=== PATIENT | male | born 1950 | race Caucasian/White ===

== ENCOUNTER → 2016-12-27 | Outpatient (CLI) | payer OTHER, MEDICARE | LOC: LAB 10:52 | DX: R31.9 Hematuria, unspecified (principal) ==

== ENCOUNTER → 2017-06-28 | Outpatient (CLI) | payer OTHER, MEDICARE | LOC: LAB 20:13 | DX: M25.552 Pain in left hip (principal) ==

== ENCOUNTER → 2018-03-23 | Outpatient (CLI) | payer OTHER, MEDICARE ==
[2018-03-23 16:55] LABS: HEMATOCRIT 35.8 % (42.0-52.0); HEMOGLOBIN 11.4 g/dL (13.5-18.0); MEAN CELL VOLUME 89 fl (78-100); MEAN CORPUSCULAR HEMOGLOBIN 28 pg (27-31); MEAN CORPUSCULAR HGB CONC 32 g/dL (33-37); MEAN PLATELET VOLUME 9.1 fl (7.4-10.4); PLATELET COUNT 261 K/mm3 (130-400); RED BLOOD COUNT 4.03 M/mm3 (4.20-5.60); RED CELL DISTRIBUTION WIDTH 14.1 % (11.5-14.5); WHITE BLOOD COUNT 4.6 K/mm3 (4.8-10.8)
[2018-03-23 17:08] LABS: ALBUMIN 3.9 g/dL (3.5-5.0); BUN/CREATININE RATIO 46.4 (6.0-26.0); CALCIUM 9.2 mg/dL (8.4-10.2); POTASSIUM 4.2 mmol/L (3.6-5.0); TOTAL BILIRUBIN 0.2 mg/dL (0.2-1.3); TOTAL PROTEIN 7.3 g/dL (6.3-8.2)
[2018-03-23 17:14] LABS: LYMPHOCYTE 29 % (20-51); MONOCYTE 11 % (3-10); NEUTROPHILS 49 % (42-75)
[2018-03-23 18:10] LABS: ERYTHROCYTE SEDIMENTATION RATE 20 mm/hr (0-20)
== END ==
LOC: LAB 16:32
PROVIDERS: Nurse Practitioner Family
DX: R21 Rash and other nonspecific skin eruption (principal); Z88.8 Allergy status to other drugs, medicaments and biological substances

== ENCOUNTER → 2018-11-10 | Outpatient (CLI) | payer OTHER, MEDICARE ==
[2018-11-10 08:50] LABS: URINE APPEARANCE HAZY; URINE BILIRUBIN NEGATIVE (NEGATIVE); URINE BLOOD TRACE (NEGATIVE); URINE COLOR YELLOW; URINE GLUCOSE NEGATIVE (NEGATIVE); URINE KETONE NEGATIVE (NEGATIVE); URINE LEUKOCYTE ESTERASE NEGATIVE (NEGATIVE); URINE NITRATE NEGATIVE (NEGATIVE); URINE PROTEIN(semi-quant) TRACE mg/dL (NEGATIVE); URINE UROBILINOGEN NORMAL (NORMAL); URINE WBC 0-1 /hpf (0-3)
[2018-11-10 08:51] LABS: URINE MUCUS PRESENT (NOT PRESENT)
== END ==
LOC: LAB 06:48
PROVIDERS: Psychiatry & Neurology Neurology
DX: G31.83 Neurocognitive disorder with Lewy bodies (principal); F02.81 Dementia in other diseases classified elsewhere, unspecified severity, with behavioral disturbance; R31.9 Hematuria, unspecified

== ENCOUNTER → 2019-04-06 | Outpatient (CLI) | payer OTHER, MEDICARE | LOC: RAD 11:18 | DX: T84.84XA Pain due to internal orthopedic prosthetic devices, implants and grafts, initial encounter (principal); M16.11 Unilateral primary osteoarthritis, right hip ==

== ENCOUNTER 2021-12-21 16:44 | Observation (INO) | payer OTHER, MEDICARE ==
[~2021-12-21] VITALS: Ht 175.3 cm; Wt 59.4 kg
[2021-12-21 17:39] LABS: BASO # 0.03 K/mm3 (0.02-0.10); EOS # 0.43 K/mm3 (0.04-0.40); EOS % 7.5 % (0.0-4.0); HEMATOCRIT 34.8 % (42.0-52.0); HEMOGLOBIN 11.1 g/dL (13.5-18.0); LYMPH# 1.34 K/mm3 (1.50-4.00); MEAN CELL VOLUME 91 fl (78-100); MEAN CORPUSCULAR HEMOGLOBIN 29 pg (27-31); MEAN CORPUSCULAR HGB CONC 32 g/dL (33-37); MEAN PLATELET VOLUME 8.8 fl (7.4-10.4); MONO # 0.42 K/mm3 (0.20-0.80); NEU # 3.47 K/mm3 (1.40-6.50); PLATELET COUNT 186 K/mm3 (130-400); RED BLOOD COUNT 3.83 M/mm3 (4.20-5.60); RED CELL DISTRIBUTION WIDTH 13.1 % (11.5-14.5); WHITE BLOOD COUNT 5.7 K/mm3 (4.8-10.8)
[2021-12-21 17:52] LABS: ALBUMIN 3.8 g/dL (3.4-4.8); POTASSIUM 4.3 mmol/L (3.5-5.1)
[2021-12-21 17:53] LABS: CALCIUM 9.2 mg/dL (8.3-10.5)
[2021-12-21 17:54] LABS: TOTAL PROTEIN 6.4 g/dL (6.2-8.1)
[2021-12-21 17:56] LABS: TOTAL BILIRUBIN 0.6 mg/dL (0.2-1.2)
[2021-12-21 18:01] LABS: MAGNESIUM 2.08 mg/dL (1.60-2.60)
[2021-12-21 18:38] LABS: URINE APPEARANCE CLEAR; URINE BILIRUBIN NEGATIVE (NEGATIVE); URINE BLOOD NEGATIVE (NEGATIVE); URINE COLOR YELLOW; URINE GLUCOSE NEGATIVE (NEGATIVE); URINE KETONE NEGATIVE (NEGATIVE); URINE LEUKOCYTE ESTERASE NEGATIVE (NEGATIVE); URINE MUCUS PRESENT (NOT PRESENT); URINE NITRATE NEGATIVE (NEGATIVE); URINE PROTEIN(semi-quant) 1+ (NEGATIVE); URINE UROBILINOGEN NORMAL (NORMAL); URINE WBC 0-1 /hpf (0-3)
--- NOTE | 2021-12-21 18:53 | NUR ---
Patient admitted observation from the ER via wheelchair with DX of parkinsons disease, visual hallucinations, lewy body disease, chronic pain, weakness, fall, and anxiety. Denies pain at this time. Transferred 2 assist to the bed and to rest back in bed. Heels floated. Alert to self, , , and year but not place, situation, or month. Speech clear at this time and answers appropriate. Phyllis in and assists patient to eat hamburger and ice cream shake. HOB elevated. Pills given whole 1 at a time with sips of water. Tramadol given for pain prevention per patient request. 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
[2021-12-21] MEDS ORDERED: QUETIAPINE FUMA25 M3 PO (18:57)
[2021-12-21] MEDS ORDERED: LORAZEPAM1 M1 PO (18:57)
[2021-12-21] MEDS ORDERED: TRAMADOL 50 MG TAB PO (18:57)
[2021-12-21 22:14] VITALS: BP 116/86
[2021-12-21] MEDS ORDERED: SENNA8.6 M1 PO (22:46)
[2021-12-21] MEDS ORDERED: SEROQUEL 2525 MG/TAB PO (22:46)
[2021-12-21] MEDS ORDERED: ATIVAN1 M1 PO (22:48)
[2021-12-21] MEDS ORDERED: GOOD NEIGHBOR100 M2 PO (22:50)
--- NOTE | 2021-12-21 23:00 | NUR ---
Patient rests with eyes closed. Respirations with ease.
[2021-12-22 08:10] VITALS: BP 98/60
[2021-12-22 11:30] VITALS: BP 97/62
--- NOTE | 2021-12-22 16:39 | NUR ---
Sent referral to [facility]. They do have beds available. Faxed clinicals to Maty (Intake) at [phone] phone: [phone]
--- NOTE | 2021-12-22 17:03 | NUR ---
confirmed fax received. Awaiting reviewer's response
--- NOTE | 2021-12-22 17:04 | NUR ---
Referral sent To [facility] in [place]. When called they did not have any beds. I advised them that this was an employee of our system and that we were wanting something in our network. Faxed referral to [phone]
[2021-12-22 17:34] VITALS: BP 113/66
--- NOTE | 2021-12-22 19:16 | NUR ---
Report received from Kalani HAYES. Patient sitting up in recliner. A/O x4. Soft spoken. Denies pain. States he is "always" SOB when asked. Respirations are even and non-labored. No signs of distress. Assessment completed. Alarms and call light in place.
--- NOTE | 2021-12-22 20:22 | NUR ---
Resting in bed. Awaken for scheduled HS medications. Pills taken whole without difficulty, Denies wants or needs.
[2021-12-22 21:50] VITALS: BP 102/64
--- NOTE | 2021-12-22 23:16 | NUR ---
Resting quietly with eyes closed. No signs of pain or distress. Bed alarm on. Call light in reach.
--- NOTE | 2021-12-22 23:50 | NUR ---
Sleeping well. Repositioned in bed by staff. Used urinal and voids 150 ML of clear yellow urine. Denies pain or needs. Bed alarm on. Call light in reach. in house and updated on status.
--- NOTE | 2021-12-23 02:43 | NUR ---
Rings call light to use urinal. Voids 400 ML clear yellow urine. Denies pain or needs.
[2021-12-23 05:20] VITALS: BP 111/71
--- NOTE | 2021-12-23 05:37 | NUR ---
AM medication taken. states patient wanting a pain pill now. Tramadol taken with scheduled Protonix. Requests HOB elevated and done. Denies further wants or needs at this time.
--- NOTE | 2021-12-23 07:14 | NUR ---
Report to Kalani HAYES.
--- NOTE | 2021-12-23 09:14 | NUR ---
Patient up to chair, 2 assist with gait belt and walker. A&Ox4, RA, no c/o pain or discomfort. Independent with breakfast. Reports he slept well last night. Eager to discharge to new facility today. Chair in locked position. Call light within reach.
[2021-12-23 09:45] VITALS: BP 94/59
--- NOTE | 2021-12-23 11:13 | NUR ---
Left a voice message with Maty at [facility]. Awaiting her reply
[2021-12-23 14:15] VITALS: BP 101/66
--- NOTE | 2021-12-23 16:20 | NUR ---
Spoke with Maty Pretty from [facility]. [phone] She is needing a DPOA paperwork, and PCR test for COVID-19. Accepting Physician is Darshan Wasserman. Betsey they will accept Monday. Possibly Monday but highly unlikely for monday. Maty asked for a copy of his insurance card.
[2021-12-23 18:00] VITALS: BP 101/65
--- NOTE | 2021-12-23 19:30 | NUR ---
Report received from Kalani HAYES. Patient up in recliner. A/O x4. No hallucinations noted. Denies pain but would like analgesic with bedtime medications. Assessment completed. Denies wants or needs at this time.
--- NOTE | 2021-12-23 20:40 | NUR ---
HS medications taken whole. Assisted to bed with 2:1 pivot transfer. Voids 50 ML of clear yellow urine in urinal. at bedside.
[2021-12-23 22:21] VITALS: BP 101/63
--- NOTE | 2021-12-23 23:54 | NUR ---
Resting well with no signs of pain or distress. Bed alarm on. Call light in reach.
--- NOTE | 2021-12-24 03:56 | NUR ---
Sleeping well per 's report. No signs of pain or distress. Bed alarm on. Call light in reach.
--- NOTE | 2021-12-24 05:25 | NUR ---
Rested well. Repositioned, brief changed and pericare provided. Brief damp. AM Protonix taken whole. Denies pain, "just tired". Would like stronger laxative today. says it has been 5 days since BM and that patient usually only goes twice a week "if we are enrike". States usually has to take Senokot or equvilent or he doesn't go.
[2021-12-24 05:29] VITALS: BP 103/64
--- NOTE | 2021-12-24 07:00 | NUR ---
REPORT RECEIVED FROM TANYA. AYALA. PATIENT CURRENTLY RESTING IN BED WITH EYES CLOSED. BED IN LOWEST LOCKED POSTION. CALL LIGHT WITHIN REACH.
--- NOTE | 2021-12-24 07:02 | NUR ---
[facility]
--- NOTE | 2021-12-24 09:03 | NUR ---
Faxed insurance dpoa and pcr covid test to [facility] in [place]. Likely [facility] will be accepted on Monday. Potentially today. But more likely on Monday. Phyllis apodaca and she is willing to drive him if we can help get him in the car and they can help get him out of the car. Contact at [facility] is Maty phone [phone] and fax is [phone].
[2021-12-24 10:08] VITALS: BP 88/63
--- NOTE | 2021-12-24 13:00 | NUR ---
PATIENT PLEASENT AND COOPERATIVE WITH CARES. OFFERS NO NEEDS OR COMPLAINTS AT THIS TIME. PATIENT ENCOURAGED TO DRINK FLUIDS. PATIENT CURRENTLY UP TO [facility]. CHAIR ALARM ON, CALL LIGHT WITHIN REACH.
[2021-12-24 14:05] VITALS: BP 91/58
--- NOTE | 2021-12-24 14:30 | NUR ---
PROVIDER IN TO SEE PATIENT. AT BEDSIDE.
--- NOTE | 2021-12-24 15:00 | NUR ---
PER PROVIDER PLAN TO DISCHARGE PATIENT HOME WITH HOME HEALTH.
[2021-12-24] MEDS ORDERED: SEROQUEL 1100 MG/TAB PO (15:51)
[2021-12-24] MEDS ORDERED: BACLOFEN5 MG PO (16:26)
--- NOTE | 2021-12-24 16:36 | NUR ---
PATIENT DISCHARGED HOME WITH HOME HEALTH IN CARE OF . DISCHARGE INSTRUCTIONS REVIEWED WITH , VERBILIZED UNDERSTANDING. ALL PATIENT ITEMS AND BELONGINGS SENT WITH PATIENT.
--- NOTE | 2021-12-27 11:46 | NUR ---
Azeb at [facility] states that Phyllis () spoke with them and decided to not have home health.
== END 2021-12-24 16:36 | disposition home health service (06) ==
LOC: ED 16:44 → MED/SURG 18:53
PROVIDERS: ADMIT Physician Assistant
DX: G31.83 Neurocognitive disorder with Lewy bodies (principal); F02.81 Dementia in other diseases classified elsewhere, unspecified severity, with behavioral disturbance; F41.1 Generalized anxiety disorder; G89.29 Other chronic pain; G47.00 Insomnia, unspecified; Z66 Do not resuscitate; R53.1 Weakness; R53.81 Other malaise; Z20.822 Contact with and (suspected) exposure to COVID-19; Z79.891 Long term (current) use of opiate analgesic; Z79.899 Other long term (current) drug therapy
CPT/HCPCS: G0378; J1650

== ENCOUNTER → 2023-01-26 | Outpatient (CLI) | payer BC, MEDICARE ==
[~2023-01-26] MED LIST: ATIVAN1 M1 PO; BACLOFEN5 MG PO; GOOD NEIGHBOR100 M2 PO; LORAZEPAM1 M1 PO; QUETIAPINE FUMA25 M3 PO; SENNA8.6 M1 PO; SEROQUEL 1100 MG/TAB PO; SEROQUEL 2525 MG/TAB PO; TRAMADOL 50 MG TAB PO
[2023-01-26 21:23] LABS: HEMATOCRIT 35.8 % (42.0-52.0); HEMOGLOBIN 11.3 g/dL (13.5-18.0); MEAN PLATELET VOLUME 9.4 fl (7.4-10.4); RED BLOOD COUNT 3.9 M/mm3 (4.20-5.60); RED CELL DISTRIBUTION WIDTH 14.9 % (11.5-14.5); WHITE BLOOD COUNT 4.5 K/mm3 (4.8-10.8)
[2023-01-26 21:35] LABS: ALBUMIN 4.1 g/dL (3.4-4.8); CALCIUM 9.5 mg/dL (8.3-10.5); TOTAL BILIRUBIN 0.3 mg/dL (0.2-1.2)
== END ==
LOC: LAB 10:44
PROVIDERS: Internal Medicine
DX: Z01.89 Encounter for other specified special examinations (principal)